=== PATIENT | female | born 1980 | race Hispanic/Latino ===

== ENCOUNTER 2025-06-13 13:50 | Emergency (ER) | payer MEDICARE, MEDICAID ==
[2025-06-13 15:30] LABS: Glucose, Urine (Dipstick) Normal (Negative); Leukocyte Negative (Negative); Protein, Urine (Dipstick) Negative (Neg-Trace); Specific Gravity, Urine 1.015 (1.005-1.030)
[2025-06-13] MEDS ORDERED: levETIRAcetam 500 MG (5 mL) VIAL ONE (15:30)
[2025-06-13 15:31] LABS: Pregnancy Test - Urine (BHCG) Negative (Negative); Pregu Control Background? CLEAR/WHITE (CLR/WHITE); Pregu Control Bar Appear? YES (CONTROL BAR)
[2025-06-13 15:38] LABS: Cocaine Metabolite Screen Negative (Negative); THC/Cannabinoid Screen Negative (Negative); Tricyclic Screen Negative (Negative)
[2025-06-13 15:58] LABS: Bacteria/HPF 2+ HPF (None Seen); CAUTI Indications for Culture Pelvic or flank pain; Mucous/LPF 1+ LPF (<2+); RBC/HPF 0-3 HPF (0-3); WBC/HPF 0-3 HPF (0-3)
[2025-06-13 15:59] LABS: Urine Culture Reflex No No
[2025-06-13 16:29] LABS: #Basophils Less than 0.03 10x3/uL (0.0-0.2); #Eosinophils 0.14 10x3/uL (0.0-0.5); #Monocytes 0.48 10x3/uL (0.0-1.1); #Neutrophils 3.60 10x3/uL (1.5-8.4); %Basophils 0.3 % (0.0-2.0); %Eosinophils 2.3 % (0.0-6.0); %Lymphocytes 29.7 % (18.0-47.0); %Monocytes 7.9 % (0.0-10.0); %Neutrophils 59.5 % (40.0-75.0); ALT (SGPT) 23 U/L (Less than 34); AST (SGOT) 21 U/L (11-34); Albumin 3.7 g/dL (3.1-4.5); Alkaline Phosphatase 73 U/L (40-110); Anion Gap 14 mmol/L (10-20); BUN (Urea Nitrogen) 10 mg/dL (7.0-18.7); Bilirubin, Total 0.2 mg/dL (0.3-1.2); Calc. Creatinine Clearance 0 mL/min (70-130); Calcium 8.5 mg/dL (7.8-10.44); Carbon Dioxide 24 mmol/L (22-29); Chloride 105 mmol/L (98-107); Globulin 3.3 g/dL (2.4-3.5); Glucose 87 mg/dL (70-105); Hematocrit 39.5 % (34.9-44.5); Hemoglobin 12.6 g/dL (12.0-15.5); Mean Corpuscular Hemoglobin 29.8 pg (27.0-33.0); Mean Corpuscular Volume 93.4 fL (81.6-98.3); Platelet Count 228 10x3/uL (150-450); Potassium 3.9 mmol/L (3.5-5.1); Red Blood Cell (RBC) Count 4.23 10x6/uL (3.90-5.03); Sodium 139 mmol/L (136-145); White Blood Cell (WBC) Count 6.06 10x3/uL (3.5-10.5)
[2025-06-13] MEDS ORDERED: cefTRIAXone (ROCEPHIN) 2 GM VIAL ONE (20:48)
[2025-06-13] MEDS ORDERED: Azithromycin 500 MG VIAL ONE (20:48)
[2025-06-13] MEDS ORDERED: metroNIDAZOLE 500 MG (100 mL) BAG ONE (21:33)
== END 2025-06-13 23:59 | disposition short-term general hospital (02) ==
LOC: CSHERS 13:50
DX: R56.9 Unspecified convulsions (principal); J18.9 Pneumonia, unspecified organism; F17.210 Nicotine dependence, cigarettes, uncomplicated; Z79.899 Other long term (current) drug therapy
CPT/HCPCS: 70450; 71045; 80053; 80306; 80307; 81001; 81025; 83605; 84146; 85025; 93005; J0456; J0696; J1953; J2060; 96365; 96375